=== PATIENT | female | born 1960 | race Caucasian/White ===

== ENCOUNTER → 2021-04-06 | Outpatient (CLI) | payer OTHER | LOC: LAB 07:30 | PROVIDERS: ATTEND Surgery | DX: Z01.812 Encounter for preprocedural laboratory examination (principal); Z20.822 Contact with and (suspected) exposure to COVID-19 | CPT/HCPCS: U0003 ==

== ENCOUNTER → 2021-04-11 | Day surgery (SDC) | payer OTHER ==
[~2021-04-11] MED LIST: LIDOCAINE 2%/EPI 1:100,000 20 ML VIAL. ONE
--- NOTE | 2021-04-11 08:52 | PDOC1 ---
History of Present Illness Reason for Visit: Excision of right buttock lesion History of Present Illness 60-year-old female complains of a mass on her right buttocks that is gotten inflamed and drained at times occasionally painful is been present for about 6 months Chief Complaint: Right buttock lesion Allergies: Coded Allergies: No Known Drug Allergies (Unverified , 04/02/21) Past Medical History Cardiac: No pertinent hx Pulmonary: No pertinent hx GI: No pertinent hx Heme/Onc: No pertinent hx Hepatobiliary: No pertinent hx Psych: No pertinent hx Musculoskeletal: No pertinent hx Rheumatologic: No pertinent hx Infectious disease: No pertinent hx ENT: No pertinent hx Renal/: No pertinent hx Endocrine: No pertinent hx Dermatology: No pertinent hx Past Surgical History: No pertinent history Family History: No pertinent hx Past Social History Smoke: No Alcohol: none Drugs: None Lives: with Family Review of Systems Review Of Systems Fourteen system , review of systems has been reviewed. See HPI for pertinent positives and negative responses, other tapia all other systems are negative, non pertinent or non contributory Exam Vital Signs Vital Signs Date Time Temp Pulse Resp B/P (MAP) Pulse Ox O2 Delivery O2 Flow Rate FiO2 04/11/21 08:27 98.2 68 16 146/93 (110) 98 Room Air General Appearance: Alert, Oriented X3, Cooperative, No acute distress HEENT: Atraumatic, EOMI Respiratory: Clear to auscultation, Normal air movement Heart: Regular rate, No murmurs Abdominal: Normal bowel sounds, Soft, No tenderness Extremities: No edema Rectal Exam: Lesion noted (1 cm skin lesion right buttocks) Skin: No significant lesion Neuro: Normal speech Assessment/Plan Assessment/Plan Excision of lesion right buttocks COURSE Allergies Coded Allergies Type Severity Reaction Last Updated Verified No Known Drug Allergies 04/02/21 No Vital Signs Date Time Temp Pulse Resp B/P (MAP) Pulse Ox O2 Delivery O2 Flow Rate FiO2 04/11/21 08:27 98.2 68 16 146/93 (110) 98 Room Air Justification of Admission: Justification of Admission: Justification of Admission Dx: N/A PAPITO ROMAN MD Apr 11, 2021 08:52
--- NOTE | 2021-04-11 10:36 | PDOC4 ---
Operative Report DATE April [id number] at 1034 Preop Diagnosis Right buttock mass Post-op Diagnosis Same Operation Performed Excision of right buttock mass Procedure of excision of right buttock mass was explained to the patient detail was benefits were also discussed including bleeding infection alternatives of this procedure also discussed with the patient who seemed to understand and gave a verbal written consent to have procedure performed. Patient was taken to the operating room placed in the prone positioning the area on the buttocks was prepped and draped usual sterile fashion using ChloraPrep. Area around the mass was injected with 2% lidocaine with epinephrine elliptical incision was made with 15 blade scalpel excising the mass. Mass 1 cm x 1 cm with a 1 cm margin wound was then closed in a single layer 4-0 subcuticular Monocryl Mastisol Steri-Strips and island dressings were applied. Patient was discharged home in stable condition all sponge instrument needle counts listed as correct estimated blood loss 5 mL Surgeon Rasheed ANESTHESIA PROPOSED: LOCAL Blood Loss 5 mL Specimen Right buttocks mass Complications None PAPITO ROMAN MD Apr 11, 2021 10:36
--- NOTE | 2021-04-11 10:38 | DISCH ---
DISCHARGE INSTRUCTIONS-DC Condition on Discharge Condition on Discharge: Stable Activity after Discharge Activity Instructions for Disc: Activity as tolerated Diet after Discharge Diet after Discharge: Regular Wound/Incision Care Other wound/incision instructi: Brianna shower in 24 hours Contacting the after DC Call your doctor for: If your condition worsens Follow-Up Follow up with: Dr. Roman in 2 weeks PAPITO ROMAN MD Apr 11, 2021 10:38
[2021-04-11 10:52] VITALS: BP 150/83
--- NOTE | 2021-04-12 16:24 | PATHOLOGY ---
[facility] Accession Number: [id number] . 01 Material submitted: . buttock - R BUTTOCKS LESION. Modifiers: right . 01 Clinical history: . EXCISION OF RIGHT GLUTEAL MASS UNDER LOCAL ANAESTHESIA . 02 Diagnosis: Skin and subcutaneous tissue, right buttock lesion excision: - Epidermal inclusion cyst, chronically inflamed. LBQ 04/12/2021 1357 Local . 02 Comment: There is no evidence of malignancy. (JPM/db; 04/12/2021) . 02 Electronically signed: . Amarjit Gordon MD, Pathologist NPI- [id number] . 01 Gross description: . The specimen is received in formalin, labeled "Malaika Angeles, R buttock". Received is an ellipse of pale galvez skin with an attached underlying soft tissue measuring 1.4 x 0.6 x 1.2 cm in greatest dimension. Sectioning reveals an intact cystic structure measuring 0.8 cm filled with pale galvez friable material. Programming Instructor sections are submitted in cassette A1.([facility]; 04/11/2021) [facility] 04/11/2021 1759 Local . 02 Pathologist provided ICD-10: L72.0 . 02 CPT . 366020 Specimen Comment: A courtesy copy of this report has been sent to [phone], [phone] Specimen Comment: [id number] Specimen Comment: Report sent to / DR MEDINA Performed at: [address] [facility] [address], [place] [id number] MD Maycol Sousa MD Phone: [phone] Performed at: 02 [facility] [address] [place], [place] [id number] MD Amarjit Gordon MD Phone: [phone]
== END | disposition home or self-care (01) ==
LOC: SURG 08:19 → EDUNIT# 08:45
PROVIDERS: ATTEND Surgery
DX: L72.0 Epidermal cyst (principal); Z79.899 Other long term (current) drug therapy; Z72.89 Other problems related to lifestyle
CPT/HCPCS: 88304